=== PATIENT | female | born 1985 ===

== ENCOUNTER 2016-08-12 20:42 | Emergency (ER) | payer MEDICARE ==
[~2016-08-12] VITALS: Ht 158.8 cm; Wt 93.9 kg
[2016-08-12 21:07] VITALS: BP 144/67; PULSE 90; RESP 18; TEMP 97.8; O2SAT 98; Ht 158.8 cm; Wt 93.9 kg
--- NOTE | 2016-08-12 22:07 | ERPDOC ---
Departure Disposition Decision Date: August 12, 2016 Disposition Decision Time: 22:09 Disposition: 01 DISCHARGED HOME, SELF-CARE Impression Impression Impression: Primary Impression: History of Taser shock Severity: Mild Condition: Stable Seen By: Physician only Patient Instructions: Care After Taser Removal (ED) Problems/Meds/Labs Reviewed?: Yes Medications reviewed and manag: Yes Additional Instructions: Taser wound will heal well, he should have no concerns. Keep antibiotic ointment for the next 2-3 days. Follow up care ordered?: Yes Mental Status: Alert, Oriented [facility] - General Medical General Chief Complaint: Psychiatric Problems Stated Complaint: EVALUATION Time Seen by Provider: 21:11 HPI - General Medical Initial Comments 31-year-old female who voluntarily admitted to a detox clinic. She got in a disagreement with staff today. Began saying that she was suicidal and going to kill herself if they didn't back off and leave her alone. The police were called and ultimately she was tased. She was brought into the ER for evaluation. She denies any suicidal ideation, states she was angry and wanted out and felt like if she threaten that they would let her leave. She recognizes that was not to remove and that is now landed. In this situation. She denies any homicidal or suicidal thoughts, has no previous suicidal behavior. She was tased in the breast, prongs been removed and she has no current complaints. Patient states she recognizes that she has emotional and psychiatric issues, but feels like she just needs a mood stabilizer and not a hospital admission for it. Allergies: Coded Allergies: NKDA (Verified Allergy, Unknown, 08/12/16) Past History Past Medical History Pt denies signifigant PMH Surgical History Denies Surgeries Family History Family PMH: FOUND: hypertension Social History Smoking Status: Current every day smoker Substance Use Type: former substance user Record Review Pertinent history updated: Yes Review of Systems Integumentary Skin: see HPI Psychiatric Psychiatric: see HPI Physical Exam General General Nourishment: no acute distress, adult, obese General Body Habitus: well groomed Vitals and Pain Weight: Kilograms: Height (feet): Height (inches): Triage Pain Scale: Normal Exams: Head: Normocephalic w/o trauma Chest/Resp: Clear all perdomo, with good airflow, and symmetry bilaterally CV: Regular rate and rhythm, without murmur or gallop, Pulses 2+ all extremities, capillary refill, <2 seconds all ext., no pedal edema noted Abdomen: Bowel sounds positive, soft, non-tender, non-distended, no hepatosplenomegaly, masses or bruits noted Integumentary (brief) Comments [place] from the barbs are on patient's chest. One is in between living to the breasts, the other is on her nipple. no active bleeding Differential Diagnoses Considering: Other (skin laceration, electrical damage from taking, suicidal ideation,) Progress Results/Orders Orders Procedure Category Date Status Time EKG EKG 08/12/16 Logged Progress Progress Patient is very pleasant, has good sensation humor. She is interacting appropriately, has logical thought. She has a plan for after she leaves the ED. Currently her phone shut off and even despite that she has come up with a way that she will get herself back to [place] to go home. She understands that if she becomes angry or anxious pulses in the ED that we may have to reevaluate. She was able to stay very calm and pleasant throughout the entire visit. EKG was negative for any acute changes. I see nothing that would put her at risk for having been tased. She is medically cleared to leave. SALINA PANDYA MD August 12, 2016 22:07
--- NOTE | 2016-08-12 22:18 | NUR ---
DEPART PT IS DISCHARGED AT THIS TIME, INSTRUCTIONS ARE REVIEWED WITH PT AND UNDERSTANDING IS VOICED. PT DENIES ANY SUICIDAL THOUGHTS. PT LEAVES AMBULATORY.
[2016-08-12] MEDS ORDERED: FLUO40CA7 PO (22:45)
[2016-08-12] MEDS ORDERED: PREN1TAB73 PO (22:45)
[2016-08-12] MEDS ORDERED: CLON1TAB4 PO (22:45)
[2016-08-12] MEDS ORDERED: DICL75TA5 PO (22:45)
== END 2016-08-12 22:18 | disposition home or self-care (01) ==
LOC: ED 20:42
DX: Z04.8 Encounter for examination and observation for other specified reasons (principal); Y35.893A Legal intervention involving other specified means, suspect injured, initial encounter; Y93.89 Activity, other specified; Y92.89 Other specified places as the place of occurrence of the external cause; Y99.8 Other external cause status
CPT/HCPCS: 93005